=== PATIENT | female | born 1985 | race Caucasian/White ===

== ENCOUNTER 2025-08-14 19:47 | Emergency (ER) | payer OTHER ==
[~2025-08-14] VITALS: Ht 154.9 cm; Wt 54.4 kg
[2025-08-14 19:53] VITALS: O2SAT 99
[2025-08-14 21:44] VITALS: BP 113/68; PULSE 79; RESP 15; TEMP 36.5; O2SAT 99
== END 2025-08-14 21:48 | disposition home or self-care (01) ==
LOC: ER 19:47
DX: L98.9 Disorder of the skin and subcutaneous tissue, unspecified (principal)
CPT/HCPCS: 70100; 99283